=== PATIENT | female | born 1975 | race Caucasian/White ===

== ENCOUNTER 2022-01-06 04:47 | Emergency (ER) | payer OTHER | END 2022-01-06 05:27 | disposition home or self-care (01) | LOC: FER 04:47 | DX: L98.9 Disorder of the skin and subcutaneous tissue, unspecified (principal); I10 Essential (primary) hypertension; F17.200 Nicotine dependence, unspecified, uncomplicated; Z79.899 Other long term (current) drug therapy | CPT/HCPCS: 99282 ==

== ENCOUNTER 2022-02-09 13:44 | Emergency (ER) | payer OTHER ==
[2022-02-09 15:30] LABS: BASOPHIL 0.2 % (0-2); EOSINOPHIL 0 % (0-5); HCT 42.1 % (37.0-47.0); HGB 14.3 g/dl (12.5-16.0); LYMPHOCYTE 32.8 % (15-48); MCH 30.5 pg (25.0-31.0); MCV 89.8 fL (78.0-100.0); MONOCYTE 7.4 % (0-12); MPV 10.5 fL (6.0-9.5); NEUTROPHIL 59.3 % (41-80); NRBC 0; PLT 320 K/uL (150-400); RBC 4.69 M/uL (4.20-5.40); RDW 12.3 % (11.5-14.0); WBC 6.2 K/uL (4.0-10.5)
[2022-02-09 15:41] LABS: BUN/CREAT RATIO (CALC) 25.4 RATIO; CREATININE 0.67 mg/dL (0.51-0.95); POTASSIUM 3.9 mmol/L (3.5-5.1)
[2022-02-09 16:09] LABS: BILIRUBIN NEGATIVE (NEGATIVE); BLOOD NEGATIVE Ery/uL (NEGATIVE); CLARITY HAZY (CLEAR); COLOR YELLOW (YELLOW); GLUCOSE (U) NORMAL (NORMAL); LEUKOCYTES NEGATIVE Leu/uL (NEGATIVE); NITRITE NEGATIVE (NEGATIVE); PROTEIN NEGATIVE (NEGATIVE); SPECIFIC GRAVITY 1.015 (1.001-1.030); UROBILINOGEN 0.2 mg/dL (0.2-1.0)
[2022-02-09 16:12] LABS: AMPHETAMINES NEGATIVE (NEGATIVE); BARBITURATES NEGATIVE (NEGATIVE); ECSTASY (MDMA) NEGATIVE (NEGATIVE); MARIJUANA (THC) NEGATIVE (NEGATIVE); METHADONE NEGATIVE (NEGATIVE); OPIATES NEGATIVE (NEGATIVE); OXYCODONE POSITIVE (NEGATIVE)
== END 2022-02-09 18:10 | disposition home or self-care (01) ==
LOC: FER 13:44
PROVIDERS: Nurse Practitioner Family
DX: R51.9 Headache, unspecified (principal); G89.29 Other chronic pain; Z88.5 Allergy status to narcotic agent
CPT/HCPCS: 36415; 80048; 80305; 81003; 85025; 99284